=== PATIENT | male | born 1950 | race Caucasian/White ===

== ENCOUNTER 2022-01-16 15:50 | Outpatient (CLI) | payer MEDICARE, SELFPAY ==
--- NOTE | 2022-01-20 15:36 | URNOTE ---
Received request for GENIAC auth for Leuprolide ([id number]). Per [facility] injectable drug authorization List, prior authorization is not required.
== END 2022-01-16 15:51 | disposition home or self-care (01) ==
LOC: MRI 15:51
PROVIDERS: PCP Family Medicine; Visit Provider Internal Medicine
DX: C61 Malignant neoplasm of prostate (principal)
CPT/HCPCS: 72195

== ENCOUNTER 2022-01-25 09:24 | Outpatient (RCR) | payer MEDICARE, SELFPAY ==
[2022-01-25 10:10] VITALS: BP 128/77; PULSE 61; RESP 16; TEMP 36.4; O2SAT 97
--- NOTE | 2022-01-25 12:20 | URNOTE ---
Received request for prior auth for Leuprolide ([id number]). Pt has medicare. Prior auth is not required as services are based on medical necessity and follow medicare guidelines.
== END 2022-07-24 23:59 | disposition home or self-care (01) ==
LOC: CCIC 09:24
PROVIDERS: Visit Provider Clinical Nurse Specialist
DX: C61 Malignant neoplasm of prostate (principal)
CPT/HCPCS: 96401; J9217

== ENCOUNTER 2022-03-02 09:47 | Outpatient (CLI) | payer MEDICARE, SELFPAY ==
[2022-03-02 14:54] LABS: Albumin* 4.4 g/dL (3.3-5.0)
[2022-03-02 14:55] LABS: Chloride* 103 mmol/L (96-114); Potassium* 4.7 mmol/L (3.6-5.1); Sodium* 138 mmol/L (135-149)
[2022-03-02 14:57] LABS: Bilirubin Total* 0.5 mg/dL (0.1-1.5); Carbon Dioxide* 27 mmol/L (20-32); Cholesterol* 167 mg/dL (90-199); Estimated Glomerular Filt Rate 79 ml/min
[2022-03-02 14:58] LABS: Alanine Aminotransferase* 31 U/L (4-50); Alkaline Phosphatase* 73 U/L (40-150); Aspartate Amino Transferase* 22 U/L (12-35); Blood Urea Nitrogen* 23 mg/dL (7-30); Calcium* 9.1 mg/dL (8.4-10.6); Glucose* 112 mg/dL (60-115); Total Protein* 6.9 g/dL (6.0-8.3); Triglycerides* 89 mg/dL (40-149)
[2022-03-02 14:59] LABS: HDL Cholesterol* 53 mg/dL (>=40); LDL Cholesterol Calculated 96 mg/dL (<100)
== END 2022-03-02 09:48 | disposition home or self-care (01) ==
PROVIDERS: PCP Family Medicine; Visit Provider Family Medicine
DX: Z00.00 Encounter for general adult medical examination without abnormal findings (principal); E78.5 Hyperlipidemia, unspecified; C61 Malignant neoplasm of prostate
CPT/HCPCS: 80053; 80061

== ENCOUNTER 2022-04-21 12:33 | Outpatient (REF) | payer MEDICARE, SELFPAY ==
[2022-04-21 13:41] LABS: PSA Diagnostic* < 0.06 ng/mL (0.10-4.00)
== END 2022-04-21 12:34 | disposition home or self-care (01) ==
LOC: NPINS 12:33
PROVIDERS: PCP Family Medicine; Visit Provider Physician Assistant
DX: C61 Malignant neoplasm of prostate (principal)
CPT/HCPCS: 84153

== ENCOUNTER 2022-08-18 12:12 | Outpatient (REF) | payer MEDICARE, SELFPAY ==
[2022-08-18 13:23] LABS: PSA Diagnostic* < 0.06 ng/mL (0.10-4.00)
[2022-08-19 21:47] LABS: Testosterone, Adult Male 5 ng/dL (300-720)
== END 2022-08-18 12:13 | disposition home or self-care (01) ==
LOC: NPINS 12:12
PROVIDERS: PCP Family Medicine; Visit Provider Physician Assistant
DX: C61 Malignant neoplasm of prostate (principal)
CPT/HCPCS: 84153; 84403

== ENCOUNTER 2022-12-06 10:46 | Emergency (ER) | payer MEDICARE, SELFPAY ==
[2022-12-06 11:09] VITALS: BP 156/75; PULSE 96; RESP 16; TEMP 36.6; O2SAT 97; BMI 26.5
--- NOTE | 2022-12-06 12:39 | CRLHL7_ITS ---
For Patients: As a result of the Century Cures Act, medical imaging exams and procedure reports are released immediately into your electronic medical record. You may view this report before your referring provider. If you have questions, please contact your health care provider. Indication: Trauma. Technique: Left ankle, 3 views. Comparison: None. Findings: Bones: Alignment is normal. No fractures or bone lesions. Joint spaces: Mild diffuse degenerative changes.. Soft tissues: Unremarkable. Impression: No acute fracture or dislocation. Dictated by Laly Cartagena MD @ 12/06/2022 3:05:01 PM (Electronically Signed)
--- NOTE | 2022-12-06 12:39 | CRLHL7_ITS ---
For Patients: As a result of the Century Cures Act, medical imaging exams and procedure reports are released immediately into your electronic medical record. You may view this report before your referring provider. If you have questions, please contact your health care provider. INDICATION: Leg pain and swelling TECHNIQUE: Ultrasound venous duplex lower left extremity. Compression venous exam was performed using aguila-scale, color Doppler, and spectral Doppler analysis. COMPARISON: None. FINDINGS: Sonographic imaging demonstrates the left common femoral, deep femoral, superficial femoral, popliteal, posterior tibial and greater saphenous and the contralateral right common femoral veins to be fully compressible with normal color Doppler blood flow. IMPRESSION: Normal left lower extremity venous ultrasound, no sign of deep venous thrombosis. Dictated by Kyle Newell MD @ 12/06/2022 2:45:17 PM (Electronically Signed)
--- NOTE | 2022-12-06 12:40 | CRLHL7_ITS ---
For Patients: As a result of the Century Cures Act, medical imaging exams and procedure reports are released immediately into your electronic medical record. You may view this report before your referring provider. If you have questions, please contact your health care provider. Indication: Injury, fall 2 weeks ago, hairline fracture the 1st digit.. Technique: Left foot, 3 views. Comparison: None. Findings/impression: Bones: Re- demonstrated subtle lucency at the base of the 1st proximal phalanx, less conspicuous on the current exam when compared to the prior, and may reflect mild interval healing. In addition, there is subtle irregularity at the distal aspect of the 4th proximal phalanx which may represent an additional nondisplaced fracture. Stable diffuse demineralization and heterogeneity of the bones.. Joint spaces: Mild to moderate diffuse degenerative changes throughout the foot.. Soft tissues: Unremarkable. Dictated by Laly Cartagena MD @ 12/06/2022 3:13:36 PM (Electronically Signed)
--- NOTE | 2022-12-06 12:42 | ED_ITS ---
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 He had an x-ray of his foot that showed a nondisplaced toe fracture of his great toe. He continues have some pain over the lateral aspect of the ankle he was, and he was concerned about a blood clot, concerned about something abnormal in his leg or ankle given he has limited feeling there. He is able to ambulate. He has still persistent swelling in his ankle. Related Data Home Medications Medication Instructions Recorded Confirmed fluticasone propionate 50 1 intranasal DAILY 08/23/22 11/27/22 mcg/actuation nasal spray,suspension Previous Rx's Medication Instructions Recorded atorvastatin 10 mg tablet 10 mg PO QDAY #90 tabs 03/02/22 fexofenadine 180 mg tablet 180 mg PO Q24H #90 tabs 03/02/22 tamsulosin 0.4 mg capsule 0.4 mg PO BID #180 caps 03/02/22 tadalafil 5 mg tablet See Rx Instructions PO ONCE PRN 04/24/22 sexual activity #90 tabs peg 3350-electrolytes 236 240 ml PO Q10M #4,000 mL 11/29/22 gram-22.74 gram-6.74 gram-5.86 gram solution (Golytely) Allergies Allergy/AdvReac Type Severity Reaction Status Date / Time seasonal Allergy Uncoded 11/27/22 10:19 Review of Systems Status of ROS: Reports: 6 or more systems reviewed and unremarkable except as noted in History and below [facility] Medical History 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 ?R05.3 - Chronic cough (ICD-10) ?U09.9 - Post covid-19 condition, unspecified (ICD-10) Surgical History History of open reduction and internal fixation (ORIF) procedure ?Z98.890 - Other specified postprocedural states (ICD-10) History of colonoscopy ?Z98.890 - Other specified postprocedural states (ICD-10) History of arthroscopy of right shoulder ?Z98.890 - Other specified postprocedural states (ICD-10) Family History Family/Other Essential tremor Mother CHF (congestive heart failure) Father Myocardial infarction Brother Prostate cancer Social History Narrative: does not use illicit drugs, , nonsmoker, social alcohol use Smoking Status: Never smoker How often do you have a drink containing alcohol: 4 or more times a week AUDIT-C Alcohol total score: 4 Non-prescribed substance use: denies use Little interest or pleasure in doing things: not at all Feeling down, depressed, or hopeless: not at all Exam Narrative: Exam Narrative: Objective: Patient's vital signs show elevated blood pressure but otherwise unremarkable His left lower extremity shows no edema or swelling of the calf he does have significant swelling of his ankle medial and laterally distal CMS shows some ecchymotic areas around his great toe there is no warmth erythema the area. He has an intact Achilles tendon he has got no proximal redness or swelling. Const: Vital Signs, click to edit/add: Vital Signs - 24 hr 12/06/22 11:09 12/06/22 12:48 Temperature 97.9 F Pulse Rate [Left P ulse Oximeter] 96 56 L Respiratory Rate 16 18 Blood Pressure [Ri ght Upper Arm] 156/75 H 137/79 Pulse Oximetry 97 99 Oxygen Delivery Me thod Room Air Room Air Course Vital Signs Vital signs: Initial Vital Signs Temperature 97.9 F 12/06/22 11:09 Temperature Source Temporal Artery Scan 12/06/22 11:09 Pulse Rate 96 12/06/22 11:09 Pulse Rhythm Regular 12/06/22 11:09 Respiratory Rate 16 12/06/22 11:09 Blood Pressure 156/75 H 12/06/22 11:09 Blood Pressure Mean 102 12/06/22 11:09 Pulse Oximetry 97 12/06/22 11:09 Oxygen Delivery Method Room Air 12/06/22 11:09 Vital Signs Temperature 97.9 F 12/06/22 11:09 Pulse Rate 96 12/06/22 11:09 Respiratory Rate 16 12/06/22 11:09 Blood Pressure 156/75 H 12/06/22 11:09 Pulse Oximetry 97 12/06/22 11:09 Oxygen Delivery Method Room Air 12/06/22 11:09 Temperature 97.9 F 12/06/22 11:09 Pulse Rate 56 L 12/06/22 12:48 Respiratory Rate 18 12/06/22 12:48 Blood Pressure 137/79 12/06/22 12:48 Pulse Oximetry 99 12/06/22 12:48 Oxygen Delivery Method Room Air 12/06/22 12:48 Medical Decision Making MDM Narrative Medical decision making narrative: [age] year white male with a significant ankle sprain foot and foot injury, 2 weeks ago, with persistent pain and swelling in his ankle and distal leg. I think it be reasonable given his lack of feeling to rule out a clot rule out a fracture will check an x-ray of his ankle and repeat x-ray of his foot to see if there is any changes. Will do a Doppler scan of his lower extremity. If these are negative then limited weight-bearing elevation be appropriate as well as perhaps a gel cast. Addendum: The patient has a negative x-ray for fracture of his ankle, his foot showed it toe base of the toe fracture. He has some swelling in his ankle however and will given a gel cast weight-bearing as tolerated in limited weight- bearing icing aggressively. Would also tell him that his Doppler scan looks unremarkable for DVT. Recheck with regular doctor next week or so. The patient does have a lower extremity splint and so he does not need a gel splint, we will set him up for Ortho in about 1 week for follow-up. Discharge Plan Discharge Clinical Impression: Injury of ankle and foot Patient Disposition: Home, Self-Care Condition: Stable Additional Instructions: Limit weight-bearing, icing on a regular basis, anti-inflammatory in the form of Advil would be recommended on a regular basis, follow-up with ortho care in 7 days. Follow up appointment is scheduled at the [facility] on 12/12 with a 9:40am appointment time. Please arrive at 9:30am to check in. If you have any questions or need to reschedule, please call [phone]. [place] [address] [place] [address] Activity Level: Light activity Discharge Diet: Regular Prescriptions: No Action atorvastatin 10 mg tablet 10 mg PO QDAY Qty: 90 3RF fexofenadine 180 mg tablet 180 mg PO Q24H Qty: 90 3RF tamsulosin 0.4 mg capsule 0.4 mg PO BID Qty: 180 3RF fluticasone propionate 50 mcg/actuation spray,suspension 1 intranasal DAILY tadalafil 5 mg tablet See Rx Instructions PO ONCE PRN (Reason: sexual activity) Qty: 90 1RF Rx Instructions: 5-10mg orally once PRN; peg 3350-electrolytes [Golytely] 236-22.74-6.74 -5.86 gram recon soln 240 ml PO Q10M Qty: 4000 0RF Rx Instructions: until fecal effluent is clear Follow Up/Referrals: Jaky Bullock DO [Primary Care Provider] - Stand Alone Forms: [facility] Info Instructions
[2022-12-06 12:48] VITALS: BP 137/79; PULSE 56; RESP 18; O2SAT 99
--- NOTE | 2022-12-06 13:34 | ED.NURSE ---
per dr. ignacio, no splint needed per pt has orthotic already.
== END 2022-12-06 13:40 | disposition home or self-care (01) ==
LOC: ED 12:50
PROVIDERS: Emergency Provider Family Medicine; PCP Family Medicine
DX: S99.912A Unspecified injury of left ankle, initial encounter (principal); S99.922A Unspecified injury of left foot, initial encounter
CPT/HCPCS: 73610; 73630; 93971; 99283; 99284

== ENCOUNTER 2023-01-09 10:21 | Outpatient (CLI) | payer MEDICARE, SELFPAY ==
--- NOTE | 2023-01-09 09:58 | W.ANESCHARGE ---
Anesthesia Charges Start Date/Time Anesthesia Start Date: 01/09/23 Anesthesia Start Time: 11:27 Stop Date/Time Anesthesia Stop Date: 01/09/23 Anesthesia Stop Time: 12:18 Summary Extremes of Age - Over 70 or under 1: MDA
--- NOTE | 2023-01-09 12:20 | W.ANESCHARGE ---
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
== END 2023-01-09 10:22 | disposition home or self-care (01) ==
LOC: OP CLINIC 10:21
PROVIDERS: PCP Family Medicine; Visit Provider Surgery
DX: Z12.11 Encounter for screening for malignant neoplasm of colon (principal); K63.5 Polyp of colon; K62.1 Rectal polyp; Z86.010 Personal history of colon polyps
CPT/HCPCS: 00811; 45385; 88305; 99100; J2704

== ENCOUNTER 2023-01-31 10:42 | Outpatient (CLI) | payer MEDICARE, SELFPAY ==
--- NOTE | 2023-01-31 11:00 | CRLHL7_ITS ---
For Patients: As a result of the Cures Act, medical imaging exams and procedure reports are released immediately into your electronic medical record. You may view this report before your referring provider. If you have questions, please contact your health care provider. Indication: PALPABLE LUMP, MASS, AND LOCALIZED SWELLING Technique: Grayscale and color Doppler ultrasound of the right anterior jaquez performed. Comparison: None Findings: There is an area decreased echogenicity just beneath the skin the right anterior jaquez soft tissues measuring 2.0 x 0.4 x 0.4 cm. No abnormal vascularity. Impression: Indeterminate oblong area of decreased echogenicity just beneath the skin measuring 2 cm. Dictated by Ramin Kidd MD @ 01/31/2023 11:14:14 AM (Electronically Signed)
== END 2023-01-31 10:43 | disposition home or self-care (01) ==
LOC: US 10:42
PROVIDERS: PCP Family Medicine; Visit Provider Family Medicine
DX: R22.41 Localized swelling, mass and lump, right lower limb (principal)
CPT/HCPCS: 76882

== ENCOUNTER 2023-03-09 08:25 | Outpatient (CLI) | payer MEDICARE, SELFPAY | END 2023-03-09 08:26 | disposition home or self-care (01) | LOC: NFLDREF 03-12 07:52 | PROVIDERS: PCP Family Medicine; Referring Provider Family Medicine; Visit Provider Family Medicine | DX: Z00.00 Encounter for general adult medical examination without abnormal findings (principal); E78.5 Hyperlipidemia, unspecified; G47.33 Obstructive sleep apnea (adult) (pediatric); R97.20 Elevated prostate specific antigen [PSA]; Z12.5 Encounter for screening for malignant neoplasm of prostate | CPT/HCPCS: 80053; 80061; 82607; 84153 ==

== ENCOUNTER 2023-03-12 10:49 | Outpatient (CLI) | payer MEDICARE, SELFPAY ==
[2023-03-12 11:24] LABS: Hemoglobin A1C* 5.6 % (0-5.6)
== END 2023-03-12 10:50 | disposition home or self-care (01) ==
LOC: FRMREF 10:49
PROVIDERS: PCP Family Medicine; Visit Provider Family Medicine
DX: R73.9 Hyperglycemia, unspecified (principal)
CPT/HCPCS: 83036

== ENCOUNTER 2024-09-18 06:27 | Outpatient (CLI) | payer MEDICARE, SELFPAY ==
--- NOTE | 2024-09-18 07:53 | P.ANES_ITS ---
Anesthesia Charges Start Date/Time Anesthesia Start Date: 09/18/24 Anesthesia Start Time: 07:13 Stop Date/Time Anesthesia Stop Date: 09/18/24 Anesthesia Stop Time: 07:49 Summary Extremes of Age - Over 70 or under 1: DIRECT SUPPORT PROFESSIONAL HOME HEALTH Coding CPT Codes CPT Codes: JOSEPHINE LWR INTST NDSC NOS - 40821 ([id number]) P2 - PATIENT W/MILD SYST DISEASE, QK - RESIDENT ENGINEER 2-4 CNCRNT ANES PROC, QX - DIRECT SUPPORT PROFESSIONAL HOME HEALTH SVC W/ MD MED DIRECTION Additional Codes: Summary - Extremes of Age - Over 70 or under 1: DIRECT SUPPORT PROFESSIONAL HOME HEALTH ([id number])
--- NOTE | 2024-09-18 07:53 | W.ANESCHARGE ---
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
--- NOTE | 2024-09-18 09:22 | P.ANES_ITS ---
Anesthesia Charges Start Date/Time Anesthesia Start Date: 09/18/24 Anesthesia Start Time: 07:13 Stop Date/Time Anesthesia Stop Date: 09/18/24 Anesthesia Stop Time: 07:49 Summary Extremes of Age - Over 70 or under 1: MDA Coding CPT Codes CPT Codes: ANES LWR INTST NDSC NOS - 33955 ([id number]) P2 - PATIENT W/MILD SYST DISEASE, QK - DIRECTOR EPIDEMIOLOGY 2-4 CNCRNT ANES PROC, QX - SENIOR ACCOUNT DIRECTOR SVC W/ MD MED DIRECTION Additional Codes: Summary - Extremes of Age - Over 70 or under 1: MDA ([id number])
--- NOTE | 2024-09-18 09:22 | W.ANESCHARGE ---
Anesthesia Charges Start Date/Time Anesthesia Start Date: 09/18/24 Anesthesia Start Time: 07:13 Stop Date/Time Anesthesia Stop Date: 09/18/24 Anesthesia Stop Time: 07:49 Summary Extremes of Age - Over 70 or under 1: MDA Coding CPT Codes CPT Codes: ANES LWR INTST NDSC NOS - 64598 ([id number]) P2 - PATIENT W/MILD SYST DISEASE, QK - WATER PUMP OPERATOR 2-4 CNCRNT ANES PROC, QX - TENNIS DESK TEAM MEMBER SVC W/ MD MED DIRECTION Additional Codes: Summary - Extremes of Age - Over 70 or under 1: MDA ([id number])
== END 2024-09-18 06:28 | disposition home or self-care (01) ==
LOC: OP CLINIC 06:28
PROVIDERS: PCP Internal Medicine; Visit Provider Surgery
DX: K92.1 Melena (principal); D12.0 Benign neoplasm of cecum; D12.2 Benign neoplasm of ascending colon; K62.89 Other specified diseases of anus and rectum
CPT/HCPCS: 00811; 45380; 45385; 88305; 99100; J2704